=== PATIENT | female | born 1995 | race African-American/Black ===

== ENCOUNTER 2018-03-19 13:02 | Emergency (ER) | payer BC, OTHER ==
[2018-03-19] MEDS ORDERED: Lidocaine 1% PF 5 ML VIAL ONE (13:57)
[2018-03-19] MEDS ORDERED: cefTRIAXone\\ROCEPHIN 250 MG VIAL ONE (13:57)
[2018-03-19] MEDS ORDERED: metroNIDAZOLE 500 MG TAB ONE (13:57)
[2018-03-19] MEDS ORDERED: Azithromycin 250 MG TAB ONE (13:57)
== END 2018-03-19 14:21 | disposition home or self-care (01) ==
LOC: SCSER 13:02
DX: N72 Inflammatory disease of cervix uteri (principal)
CPT/HCPCS: 87480; 87491; 87510; 87591; 87660; 96372; J0696; J2001

== ENCOUNTER 2019-08-31 10:46 | Outpatient (CLI) | payer OTHER ==
--- NOTE | 2019-08-31 11:44 | ULT ---
ULTRASOUND OBSTETRICAL COMPLETE: DATE: 08/31/2019 HISTORY: 23-year-old female. Evaluate anatomy and cervical status. FINDINGS: number: edge lie: Breech Maternal cervix: 4 cm. Closed. Placenta: Posterior. No placenta previa. Amniotic fluid volume: JAYANT = 4 cm heart rate: 150 bpm The following anatomy is visualized, with no evidence of anomalies: Head, cerebellum, lateral ventricles, four-chamber heart, stomach, kidneys, cord insertion, bladder, cervical spine, thoracic spine, lumbar spine, sacrum, nose and lips, upper extremities, lower extremities, and three-vessel cord. biometry: Biparietal diameter (BPD): 4.6 cm 20 w 0 d Head circumference (HC): 17.9 cm 20 w 2 d Abdominal circumference (AC): 15.2 cm 20 w 3 d Femur length (FL): 3.4 cm 20 w 4 d Average ultrasound age (AUA): 20 w 2 d Estimated date of delivery (ZEYNEP): 01/16/2020 Estimated weight (EFW): 356 g +/- 53 g IMPRESSION: 1) Live 2nd trimester intrauterine gestation. 2) Estimated gestational age of 20 weeks, 2 days 3) breech lie. 4) no anatomic abnormality identified.
== END 2019-08-31 10:47 | disposition home or self-care (01) ==
LOC: SCSULT 10:46
PROVIDERS: ATTEND Family Medicine
DX: Z34.02 Encounter for supervision of normal first pregnancy, second trimester (principal); O32.1XX0 Maternal care for breech presentation, not applicable or unspecified; Z3A.20 20 weeks gestation of pregnancy
CPT/HCPCS: 76805

== ENCOUNTER 2019-09-11 13:17 | Day surgery (SDC) | payer OTHER ==
[2019-09-11 14:42] VITALS: BMI 30.5
== END 2019-09-11 14:17 | disposition home health service (06) ==
LOC: L&D/OP 13:17
PROVIDERS: ATTEND Family Medicine
DX: O99.89 Other specified diseases and conditions complicating pregnancy, childbirth and the puerperium (principal); R10.9 Unspecified abdominal pain; Z3A.00 Weeks of gestation of pregnancy not specified
CPT/HCPCS: 99282